=== PATIENT | male | born 1960 | race Caucasian/White ===

== ENCOUNTER → 2021-08-08 | Outpatient (CLI) | payer OTHER | LOC: SJCVCIMAG 09:33 | PROVIDERS: ATTEND Internal Medicine Cardiovascular Disease | DX: I08.3 Combined rheumatic disorders of mitral, aortic and tricuspid valves (principal); I48.91 Unspecified atrial fibrillation ==

== ENCOUNTER 2021-08-13 20:17 | Inpatient (IN) | payer OTHER ==
[~2021-08-13] VITALS: Ht 172.7 cm; Wt 128.4 kg
[2021-08-13 21:42] VITALS: BP 158/110
[2021-08-13] MEDS ORDERED: LOSARTAN-HCTZ1 EAC3 PO (23:51)
[2021-08-13] MEDS ORDERED: ALLOPURINOL 10100 M3 PO (23:52)
[2021-08-13] MEDS ORDERED: ASA81BEC PO (23:53)
[2021-08-13] MEDS ORDERED: TAMBOCOR 100 M100 M1 PO (23:53)
[2021-08-13] MEDS ORDERED: ATENOLOL 100MG100 MG PO (23:54)
[2021-08-13] MEDS ORDERED: ELIQUIS5 MG PO (23:55)
[2021-08-13 23:57] VITALS: BP 148/84
[2021-08-14 03:13] LABS: HEMATOCRIT 37.9 % (42.0-52.0); HEMOGLOBIN 12.9 gm/dL (14.0-18.0); RBC 3.8 mil/uL (4.50-6.00); RDW 14.1 % (10.5-14.5); WBC 10.7 thou/uL (4.0-11.0)
[2021-08-14 03:16] LABS: CALCIUM 8.5 mg/dL (8.5-10.1); CREATININE 0.8 mg/dL (0.7-1.3); POTASSIUM 4.4 mmol/L (3.5-5.1)
--- NOTE | 2021-08-14 03:45 | NUR ---
PATIENT ADMITTED VIA AMBULANCE A DIRECT ADMIT FROM [facility]. PATIENT IS TRANSPORTED VIA STRETCHER. HE IS ABLE TO AMBULATE UNDER HIS OWN POWER TO THE BED. HE IS AAOX4 AND FOLLOWS ALL COMMANDS AND PROMPTS WITH NO ISSUES. HE IS ON A CARDIZEM DRIP THAT WAS STARTED AT [facility]. HE HAS IV'S TO BILATERAL AC'S. HE STATES THAT HE HAS NO DIFFICULTY BREATHING AT THIS TIME AND IS ABLE TO URINATE VIA COMMODE. HIS B/P IS ON THE HIGH SIDE AT 155/100. HE STATES THAT HIS CHEST PAIN IS LOCALIZED TOWARDS HIS STERNUM AT 2/10. NOTIFIED SCRUM PROJECT MANAGER ON DUTY OF PATIENT ARRIVAL. MEDICATIONS DISCUSSED WITH PT AND PROVIDER. NOTIFIED DR. MON REGARDING FLECAINIDE. ORDERED MED TO BE HELD AT THIS TIME. PATIENT MG WAS DRAWN AND RESULT WAS 1.3 WHICH IS REPLACED WITH 2GM MGSO4. WILL CONTINUE TO MONITOR FOR CHANGES IN STATUS.
[2021-08-14 04:06] VITALS: BP 142/86
[2021-08-14 07:25] VITALS: BP 138/94
[2021-08-14 11:15] VITALS: BP 92/63
[2021-08-14 15:30] VITALS: BP 106/63
[2021-08-14 20:28] VITALS: BP 126/79
--- NOTE | 2021-08-14 23:51 | NUR ---
PATIENT RESTINGIN THE BEDSIDE RECLINER. STATES THAT HE WAS NOT ABLE TO SLEEP WELL LAST NIGHT AND DID NOT SLEEP MUCH TODAY. CARDIZEM GTT REMAINS INFUSING AT 10CC/HR. REMAINS AFIB ON THE MONITOR BUT CONTROLLED AT 77-85 BPM. DECREASED RATE TO 5 CC/HR. PATIENT DENIES PAIN. SBP 124 AT THIS TIME. HE IS ABLE TO AMBULATE UNDER HIS OWN POWER. HE IS CALM AND COOPERATIVE. HE WILL BE NPO AFTER MIDNIGHT FOR SCHDULED PROCEDURE IN THE AM.
[2021-08-15 03:58] LABS: ABSOLUTE NEUTROPHILS 7.4 thou/uL (1.4-8.2); BASOPHILS 0.6 % (0.0-2.0); EOSINOPHILS 0.4 % (0.0-3.0); HEMATOCRIT 34.1 % (42.0-52.0); HEMOGLOBIN 11.6 gm/dL (14.0-18.0); LYMPHOCYTES 13.7 % (24.0-44.0); MCH 34.6 pg (26.0-34.0); MCHC 34.1 g/dL (28.0-37.0); MCV 101.5 fL (80.0-100.0); MONOCYTES 12.6 % (1.0-8.0); PLATELET COUNT 328 thou/uL (150-400); POLYS 72.7 % (36.0-66.0); RBC 3.36 mil/uL (4.50-6.00); RDW 14.3 % (10.5-14.5); WBC 10.2 thou/uL (4.0-11.0)
[2021-08-15 04:40] VITALS: BP 134/94
[2021-08-15 08:12] LABS: CALCIUM 8.3 mg/dL (8.5-10.1); MAGNESIUM 1.3 mg/dL (1.8-2.4); POTASSIUM 4.3 mmol/L (3.5-5.1)
--- NOTE | 2021-08-15 09:01 | EKG ---
[place] [address] [facility] [place] [address] ELECTROCARDIOGRAM REPORT Name: DAT TAYLOR Room #: 208-P ADM IN M.R.#: [id number] Admission: 08/13/21 Attend Phys: Ciara Xiao MD Discharge: Date of : 58 Report #: [id number] [facility] Test Date: 2021-08-15 Test Time: 08:31:36 Pat Name: DAT TAYLOR Department: Room: 208 P Gender: M Electrician Ship: AJ : 1960 Requested By: Grady Campoverde Order Number: [id number] MD: Grady Campoverde Measurements Intervals [place] Rate: 70 P: 40 AK: 231 QRS: 45 QRSD: 107 T: 15 QT: 437 QTc: 472 Interpretive Statements Sinus rhythm Ventricular premature complex Prolonged AK interval Probable anteroseptal infarct, old No previous ECG available for comparison Electronically Signed On 08-15-2021 9:01:53 COOPERATIVE MANAGER by Grady Campoverde [email or web address] <ELECTRONICALLY SIGNED> By: Grady Campoverde MD, [facility] 08/15/21900 08 Grady Campoverde MD, FACC /EPI
--- NOTE | 2021-08-15 10:16 | TEE ---
[facility] [address] [place] [address] TRANSESOPHAGEAL ECHOCARDIOGRAM Name: DAT TAYLOR Room #: 208-P ADM IN M.R.#: [id number] Admission: 08/13/21 Attend Phys: Ciara Xiao MD Discharge: Date of : 58 Report #: [id number] THIS REPORT FOR: cc: DEE VALERO - Family physician unknown Grady Campoverde MD [facility] ~ APPROVED REPORT Study performed: 08/15/2021 08:04:47 EXAM: Transesophageal Echocardiogram with Doppler and cardioversion Patient Location: In-Patient Room #: 208 Status: routine BSA: 2.34 HR: 88 bpm BP: 154/88 mmHg Rhythm: Atrial Fibrillation Other Information Study Quality: Good Indications Atrial Fibrillation Echo Enhancing Agent Indication: Rule out Shunt Agent(s) / Amount(s) Used: Agitated Saline 7 cc Procedure After obtaining informed consent, patient underwent transesophageal echo in the [employer]. Type of Sedation : Conscious Sedation Sedation was administered by Nurse. Sedation start time: 819 Case end Time: 824 Sedation was achieved intravenously with: Versed (5mg) Fentanyl (75mcg) Transesophageal probe was inserted and advanced into esophagus without difficulty by Grady Campoverde MD. Echo enhancement indication: R/O Septal defect. Echo enhancement agent administered: Agitated Saline The ROB was performed without complications. Synchronized Cardioversion acheived with 150 Joules after 1 [facility] [address] [place] [address] TRANSESOPHAGEAL ECHOCARDIOGRAM Name: DAT TAYLOR Room #: 208-P ADM IN M.R.#: [id number] Admission: 08/13/21 Attend Phys: Ciara Xiao MD Discharge: Date of : 58 Report #: [id number] attempt(s). Rhythm following Synchronized Cardioversion: Normal Sinus Rhythm Throughout the procedure, the blood pressure, pulse oximetry, cardiac rhythm, and rate were monitored. The patient tolerated the procedure without adverse effects. Recovery from conscious sedation was uneventful and vital signs were stable. Left Ventricle The left ventricle is normal size. There is normal left ventricular wall thickness. Left ventricular systolic function is at the lower limits of normal. LVEF is 50%. Right Ventricle Right ventricle is dilated. The right ventricular systolic function is normal. Atria Left atrium is dilated. No thrombus is visualized in the left atrium or appendage. No shunting by contrast bubble injection Right atrium is dilated. Aortic Valve The aortic valve is trileaflet, mildly sclerotic No aortic regurgitation is present. There is no aortic valvular stenosis. Mitral Valve The mitral valve is normal in structure. Mild mitral regurgitation. No evidence of mitral valve stenosis. Tricuspid Valve The tricuspid valve is normal in structure. Mild tricuspid regurgitation. Pulmonic Valve The pulmonary valve is normal in structure. There is no pulmonic valvular regurgitation. Great Vessels The aortic root is normal in size. The ascending aorta is normal in size. IVC is normal in size and collapses >50% with inspiration. Pericardium There is no pericardial effusion. [facility] [address] [place] [address] TRANSESOPHAGEAL ECHOCARDIOGRAM Name: DAT TAYLOR Room #: 208-P ADM IN M.R.#: [id number] Admission: 08/13/21 Attend Phys: Ciara Xiao MD Discharge: Date of : 58 Report #: [id number] <Conclusion> Left ventricular systolic function is at the lower limits of normal. LVEF is 50%. Both atria are severely dilated. No thrombus is visualized in the left atrium or appendage. No shunting by contrast bubble injection The aortic valve is trileaflet, mildly sclerotic. No aortic regurgitation or stenosis. The mitral valve is normal in structure. Mild mitral regurgitation. There is no pericardial effusion. Successful cardioversion of atrial fibrillation to sinus rhythm following a single 150J biphasic synchronous joules shock <ELECTRONICALLY SIGNED> By: Grady Campoverde MD, FACC 08/15/21 1015 1015 1015 Grady Campoverde MD, FACC /INF
--- NOTE | 2021-08-15 11:20 | NUR ---
PATIENT HAD A ROB-GUIDED CARDIOVERSION THIS MORNING FOR NEW-ONSET AFIB. PER REPORT, THE PATIENT RECEIVED ONE 150J BIPHASIC SYNCHRONOUS SHOCK, WHICH SUCCESSFULLY CONVERTED THE PATIENT TO REGULAR SINUS RHYTHM. THE CARDIZEM GTT WAS SHUT OFF WHILE OFF THE UNIT AND REMAINS OFF D/T ACCEPTABLE RHYTHM, HR, AND BP. THE PATIENT ARRIVED TO THE UNIT AWAKE, A/O X4, WITH NO SIDE EFFECTS NOTED FROM THE PROCEDURE. PLAN IS TO DISCHARGE THE PATIENT TODAY OR TOMORROW.
[2021-08-15 11:52] VITALS: BP 107/62
[2021-08-15 15:45] VITALS: BP 146/33
[2021-08-15 20:18] VITALS: BP 142/71
[2021-08-16 04:51] VITALS: BP 140/97
[2021-08-16 05:07] LABS: CALCIUM 8.2 mg/dL (8.5-10.1); CREATININE 0.8 mg/dL (0.7-1.3); MAGNESIUM 1.6 mg/dL (1.8-2.4); POTASSIUM 4.5 mmol/L (3.5-5.1)
--- NOTE | 2021-08-16 06:39 | NUR ---
PATIENTS CARES WHERE ASSUMED AT SHIFT CHANGE. PATIENT WAS ASSESSED AND MEDS WHERE PASSED. PATIENT SPENT THE NIGHT IN THE RECLINER. SEVERAL C/O HIS IV PUMP MAKING NOISE. IV SITE WAS REDRESSED DUE TO PATIENT THOUGHT IS WAS LEEKING. RPONDS WHERE DONE. IT WAS AN UNEVENTFUL NIGHT.
[2021-08-16 08:00] VITALS: BP 144/96
--- NOTE | 2021-08-16 08:00 | EKG ---
[address] [address] ELECTROCARDIOGRAM REPORT Name: DAT TAYLOR Room #: 208-P ADM IN M.R.#: [id number] Admission: 08/13/21 Attend Phys: Jeremiah Akins MD Discharge: Date of : 58 Report #: [id number] [facility] Test Date: 2021-08-16 Test Time: 07:31:59 Pat Name: DAT TAYLOR Department: Room: 208 P Gender: M Drawing Checker: AJ : 1960 Requested By: Grady Campoverde Order Number: [id number] MD: Grady Campoverde Measurements Intervals [place] Rate: 72 P: 26 WV: 239 QRS: 36 QRSD: 108 T: 17 QT: 419 QTc: 459 Interpretive Statements Sinus rhythm Prolonged WV interval Poor R wave progression Compared to ECG 08/15/2021 08:31:36 Ventricular premature complex(es) no longer present Electronically Signed On 08-16-2021 8:00:03 PAY STATION DEPARTMENT MANAGER by Grady Campoverde [email or web address] <ELECTRONICALLY SIGNED> By: Grady Campoverde MD, [facility] 08/16/21 0800 0 0 Grady Campoverde MD, [facility] /EPI
[2021-08-16 11:30] VITALS: BP 141/83
--- NOTE | 2021-08-16 12:20 | NUR ---
Assumed care of pt this AM. Pt is A&O x4, agitated. SR on the monitor & on RA. Pt states that he didn't sleep well last night as IV pump alarmed frequently. Pt wanting to discharge home today, but needs electrolyte replacement. Pt up ad malina in the room. Assessment as documented. Needs met. Frequent rounding in place.
[2021-08-16 15:24] LABS: CALCIUM 8.4 mg/dL (8.5-10.1); CREATININE 0.9 mg/dL (0.7-1.3); MAGNESIUM 1.9 mg/dL (1.8-2.4); POTASSIUM 4.9 mmol/L (3.5-5.1)
[2021-08-16 16:30] VITALS: BP 122/77
[2021-08-16 20:12] VITALS: BP 139/74
[2021-08-17 02:49] LABS: CALCIUM 8.7 mg/dL (8.5-10.1); CREATININE 0.9 mg/dL (0.7-1.3); MAGNESIUM 1.6 mg/dL (1.8-2.4); POTASSIUM 4.6 mmol/L (3.5-5.1)
[2021-08-17 04:34] VITALS: BP 152/94
--- NOTE | 2021-08-17 05:59 | NUR ---
PATIENT CARES WHER ASSUMED AT SHIFT CHANGE. PATIENTWAS ASSESSED AND MEDS WHERE PASSED. ALCOHOL WITH DRAW ASSESSMENT WAS DONE THIS SHIFT AND PATIENT SCORED A ONE AT EACH TIME. PATIENT WAS CHECKED AT EIGHT, MIDNIGHT, AND AT FOUR O'CLOCK. PATIENT IS HOPEFUL TO BE DISCHARGED TODAY. ROUNDS WHERE DONE. THE BED IS IN A LOW AND LOCKED POSITION. PATIENT SPENDS MOST OF HIS TIME UP IN A CHAIR.
[2021-08-17 07:23] VITALS: BP 171/86
--- NOTE | 2021-08-17 07:45 | EKG ---
[address] [place] [address] ELECTROCARDIOGRAM REPORT Name: DAT TAYLOR Room #: 208-P ADM IN M.R.#: [id number] Admission: 08/13/21 Attend Phys: Jeremiah Akins MD Discharge: Date of : 58 Report #: [id number] [facility] Test Date: 2021-08-16 Test Time: 14:24:05 Pat Name: DAT TAYLOR Department: Room: 208 P Gender: M Pulp Roller: AJ : 1960 Requested By: Jeremiah Akins Order Number: [id number] MD: Grady Campoverde Measurements Intervals [place] Rate: 64 P: 19 VT: 75 QRS: 39 QRSD: 112 T: 14 QT: 448 QTc: 463 Interpretive Statements Sinus rhythm frequent atrial premature complexes Poor R wave progression Compared to ECG 08/16/2021 07:31:59 Atrial premature complex(es) now present Electronically Signed On 08-17-2021 7:45:38 MANAGER GAMES by Grady Campoverde [email or web address] <ELECTRONICALLY SIGNED> By: Grady Campoverde MD, [facility] 08/17/21 0745 1424 1424 Grady Campoverde MD, [facility] /EPI
[2021-08-17] MEDS ORDERED: COZAAR100 MG PO (10:13)
[2021-08-17] MEDS ORDERED: CEFPODOXIME PR200 M1 PO (10:14)
[2021-08-17] MEDS ORDERED: DOXYCYCLINE 10100 M2 PO (10:15)
[2021-08-17 11:32] VITALS: BP 133/49
[2021-08-17 11:50] VITALS: BP 133/49
[2021-08-17 13:26] VITALS: BP 133/49
--- NOTE | 2021-08-17 13:28 | NUR ---
DISCHARGED PATIENT. EXPLAINED DISCHARGE INTRUCTIONS TO PATIENT AND SPOUSE. HIGHLIGHTED MEDICATION CHANGES AND UPCOMING APPOINTMENTS, PT RECEIVED 3 PAPER PRESCRIPTIONS. REMOVED IV WITH TIP INTACT. 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 NEITHER PATIENT OR SPOUSE HAD ANY ADDITIONAL QUESTIONS.
== END 2021-08-17 14:05 | disposition home or self-care (01) | DRG 308 ==
LOC: 2N 20:17
PROVIDERS: Internal Medicine; Nurse Practitioner Family; ADMIT Internal Medicine; ATTEND Internal Medicine
PROC: 5A2204Z Restoration of Cardiac Rhythm, Single (ICD-10-PCS; principal; 2021-08-15)
PROC: B24BZZ4 Ultrasonography of Heart with Aorta, Transesophageal (ICD-10-PCS; principal; 2021-08-15)
DX: I48.19 Other persistent atrial fibrillation (principal); J69.0 Pneumonitis due to inhalation of food and vomit; J18.9 Pneumonia, unspecified organism; E87.1 Hypo-osmolality and hyponatremia; Z68.41 Body mass index [BMI] 40.0-44.9, adult; I10 Essential (primary) hypertension; M10.9 Gout, unspecified; E66.9 Obesity, unspecified; F10.20 Alcohol dependence, uncomplicated; I27.20 Pulmonary hypertension, unspecified; E83.42 Hypomagnesemia; Z79.01 Long term (current) use of anticoagulants; Z82.49 Family history of ischemic heart disease and other diseases of the circulatory system; Z88.0 Allergy status to penicillin; Z23 Encounter for immunization
CPT/HCPCS: 10081; 10797